=== PATIENT | female | born 1990 | race Asian ===

== ENCOUNTER 2020-10-06 21:36 | Emergency (ER) | payer OTHER, SELFPAY ==
--- NOTE | ~2020-10-06 | CT_ITS ---
EXAMINATION: HEAD CT WITHOUT CONTRAST CERVICAL SPINE CT WITHOUT CONTRAST CLINICAL INFORMATION: fell off bed head first, bravo, dizzy, nauseous. cannot move neck COMPARISON: None. TECHNIQUE: Contiguous axial imaging of the head was performed without the administration of IV contrast. Axial multidetector volumetric images were also performed through the cervical spine without intravenous contrast. Multiplanar reconstructed images in coronal and sagittal orientations were submitted. This CT examination was performed using dose optimization techniques as appropriate, variously including the following: *Automated exposure control *Adjustment of mA and/or kV according to patient size (this includes techniques or standardized protocols for targeted exams where dose is matched to indication/reason for exam; i.e. extremities or head) *Use of iterative reconstruction technique DOSE: 1203 mGy-cm FINDINGS: HEAD: There is no evidence of acute intracranial hemorrhage or territorial infarction. No abnormal mass-effect or midline shift. No extra-axial fluid collections. Brambila to white matter differentiation is well preserved. The ventricles are normal in size and configuration. There is no abnormal attenuation within the brain parenchyma. The soft tissues and osseous structures are normal. The sinuses and mastoid air cells are clear. CERVICAL SPINE: Vertebral body heights are normal. There is an acute fracture of C1 with 3 separate components. The anterior arch is fractured at its left half near the junction with the left lateral mass. The posterior arch is fractured bilaterally near the junctions with the lateral masses. There is a small avulsion fracture along the medial margin of the right lateral mass, likely corresponding to the attachment of the transverse ligament. The lateral masses are intact. No appreciable involvement of the transverse processes are foramen transversarium. There is splaying of the medial and lateral masses by 7 mm. The lateral masses are displaced laterally relative to the occipital condyles in a symmetric fashion, approximately 5 cm bilaterally. There is similar lateral displacement of the lateral masses relative to C2. No additional fractures are identified. No additional fractures are identified. Intervertebral disc heights are normal. No significant degenerative disc disease. Facet joints are normal. Central canal and neural foramina appear patent without appreciable stenoses. There is mild swelling of the longus coli muscles anteriorly. Cervical soft tissues are unremarkable. Imaged portions of the lung apices are clear. CT/CT cervical spine wo con IMPRESSION: 1. No acute intracranial pathology. 2. Acute Randy fracture of C1 with splaying of the lateral masses by approximately 7 mm. No appreciable compromise of the central canal. No additional fractures. This critical result was discussed by telephone with Sejal DELGADO on 10/07/2020 at 12:47 AM.
[2020-10-06 21:55] VITALS: BP 137/88; PULSE 95; RESP 18; TEMP 36.7; O2SAT 100; BMI 27.1
--- NOTE | 2020-10-06 23:56 | ED_ITS ---
HPI - Fall General Chief Complaint: Fall Stated Complaint: fell and injured neck badly Time Seen by Provider: 10/06/20 23:44 Source: patient Mode of arrival: ambulatory Limitations: no limitations History of Present Illness HPI Narrative: Patient is a 30-year-old female with no significant past medical history who presents after falling off her bed while play fighting with her friend. She states this happened just prior to her arrival. She states they were planning and she fell approximately 3 ft off of her bed head 1st into the hard floor. She states it is carpeted but it is a very thin that carpet. She s tates she immediately was unable to move her neck. she also endorses sensitivity to light, nausea, headache and dizziness. She denies vomiting or sensitivity to noise. denies any loss of control of her bladder or bowels and was able to walk in to the emergency department. Related Data Allergies Allergy/AdvReac Type Severity Reaction Status Date / Time No Known Allergies Allergy Verified 10/06/20 21:54 Review of Systems Review of Systems: Yes all other systems are reviewed and are negative FORMERLY [facility], [facility] Past Medical History Medical History Seizure Social History Social History Advance Directives: No Advance Directives Information Provided: No Patient : No Physical Exam Vital Signs: Vital Signs: Last Vital Signs Temp 98.0 F 10/06/20 21:55 Pulse 95 10/06/20 21:55 Resp 18 10/06/20 21:55 BP 137/88 10/06/20 21:55 Pulse Ox 100 10/06/20 21:55 Body Mass Index 27.1 Const: General: cooperative, healthy appearing, comfortable and acute distress (2/2 neck pain) mild HENMT: Head: Yes normal to inspection, Yes No palpable skull fracture present, Yes normocephalic, Yes atraumatic, No abrasion, No Minor's sign, No contusion, No raccoon eyes and Yes scalp tenderness (along parietal ridge of left and right side) Ears: hearing grossly normal bilaterally, external ears normal, TM normal on the right ( cerumen impaction, unable to visualize) and TM normal on the left General nose exam: Normal external nose present and Normal septum present Face and sinus: Yes normal facial exam Mouth: Normal oral and palatal mucosa present and lip normal Teeth and gingiva: dentition normal Eyes: General: appearance normal, both eyes and all related structures Neck: Neck: Yes normal visual inspection, No full ROM ( patient unable to move neck left right up down or ear to ear), Yes trachea midline and Yes tender (along cervical paraspinous muscles) Resp: Effort & Inspection: normal respiratory effort and able to speak in complete sentences Back/Spine/Pelvis: Cervical Spine: No collar present, cervical muscular tenderness, pain with cervical ROM, No Cervical spine tenderness, No step off deformity and cervical ROM abnormal Thoracic/Lumbar Spine: thoracic and lumbar spine normal to inspection Skin: General skin exam: no rashes or lesions noted Neuro: Cranial nerves: Yes CN's II-XII intact bilaterally Extrem: Other: Normal strength and sensation both upper and lower extremities bilaterally. General: Yes normal to inspection and Yes full ROM Course Course Course Narrative: Patient is a 30-year-old female with no significant past medi violeta history who presents after falling off her bed while play fighting with her friend. patient has headache, nausea, dizziness and light sensitivity. VSS. Physical exam remarkable for patient unable to perform any range of motion with her neck. Will get head and neck CT. Will give pain medication and muscle relaxer as well. Unable to do exam on remainder of spine, will perform once patient is medicated Reevaluation(s) Reevaluation #1: C1 fx on Ct Scan, collared pt, will give ativan for anxiety. Called [facility] for xfer. Time: 00:08 Reevaluation #2: Randy Rust called, she has a Randy fx at C1, no other fx's, good spinal alignment. Brain CT looks good. Time: 00:42 Reevaluation #3: Dr Benitez from [facility] said he will accept pt as a Cat 2 trauma, will order EMS for xfer. Time: 00:49 MDM - Fall Imaging Data CT brain and cervical spine: My impression: Randy fracture Radiologist's impression: [address] [id number] Scan ReportSigned Patient: Mike Sanon#: [id number]: 1990Acct:[id number]/Sex: 30 / FADM Date: 10/06/20Loc: HO.EDAttending Dr: Ordering Physician: Sejal Witt PA-C Date of Service: 10/07/20 Procedure(s): CT head/brain wo con Accession Number(s): [id number] cc: Sejal Witt PA-C~ EXAMINATION: HEAD CT WITHOUT CONTRAST CERVICAL SPINE CT WITHOUT CONTRAST CLINICAL INFORMATION: fell off bed head first, bravo, dizzy, nauseous. cannot move neck COMPARISON: None. TECHNIQUE: Contiguous axial imaging of the head was performed without the administration of IV contrast. Axial multidetector volumetric images were also performed through the cervical spine without intravenous contrast. Multiplanar reconstructed images in coronal and sagittal orientations were submitted. This CT examination was performed using dose optimization techniques as appropriate, variously including the following: *Automated exposure control *Adjustment of mA and/or kV according to patient size (this includes techniques or standardized protocols for targeted exams where dose is matched to indication/reason for exam; i.e. extremities or head) *Use of iterative reconstruction technique DOSE: 1203 mGy-cm FINDINGS: HEAD: There is no evidence of acute intracranial hemorrhage or territorial infarction. No abnormal mass-effect or midline shift. No extra-axial fluid collections. Brambila to white matter differentiation is well preserved. The ventricles are normal in size and configuration. There is no abnormal attenuation within the brain parenchyma. The soft tissues and osseous structures are normal. The sinuses and mastoid air cells are clear. CERVICAL SPINE: Vertebral body heights are normal. There is an acute fracture of C1 with 3 separate components. The anterior arch is fractured at its left half near the junction with the left lateral mass. The posterior arch is fractured bilaterally near the junctions with the lateral masses. There is a small avulsion fracture along the medial margin of the right lateral mass, likely corresponding to the attachment of the transverse ligament. The lateral masses are intact. No appreciable involvement of the transverse processes are foramen transversarium. There is splaying of the medial and lateral masses by 7 mm. The lateral masses are displaced laterally relative to the occipital condyles in a symmetric fashion, approximately 5 cm bilaterally. There is similar lateral displacement of the lateral masses relative to C2. No additional fractures are identified. No additional fractures are identified. Intervertebral disc heights are normal. No significant degenerative disc disease. Facet joints are normal. Central canal and neural foramina appear patent without appreciable stenoses. There is mild swelling of the longus coli muscles anteriorly. Cervical soft tissues are unremarkable. Imaged portions of the lung apices are clear. CT/CT head/brain wo con IMPRESSION: 1. No acute intracranial pathology. 2. Acute Randy fracture of C1 with splaying of the lateral masses by approximately 7 mm. No appreciable compromise of the central canal. No additional fractures. This critical result was discussed by telephone with Sejal DELGADO on 10/07/2020 at 12:47 AM. Dictated By:DEONDRE GREENFIELD MDSigned By:<Electronically signed by DEONDRE GREENFIELD MD in [place]>10/07/20 0048 DD/ 0001
[2020-10-07] MEDS: Cyclobenzaprine HCl 5 MG TABLET PO (00:06)
[2020-10-07] MEDS: Morphine Sulfate Immed Release 15 MG TABLET PO (00:06)
--- NOTE | 2020-10-07 00:25 | PC.NURSE ---
REPORT FROM JASVIR IN [facility] AT 23:30 PT HAS ROLLED TOWEL BEHIND NECK FOR SUPPORT, C-COLLAR NOT PLACED. PT MEDICATED, HEAD OF BED AT 30 DEGREE ANGLE AND PT TRANSPORTED TO CT SCAN ON STRETCHER.
--- NOTE | 2020-10-07 00:36 | PC.NURSE ---
C-COLLAR PLACED ON PT IN CT SCAN BY DR. MCKENZIE PLAN OF CARE FOR TX TO [facility] FOR TRAUMA
[2020-10-07] MEDS: LORazepam 2 MG/ML VIAL 0.5 MG IVPUSH (00:44)
[2020-10-07] MEDS: ondansetron HCL 4 MG/2 ML VIAL IVPUSH (00:56)
[2020-10-07 00:57] VITALS: BP 139/75; PULSE 87; RESP 16; O2SAT 100
[2020-10-07 01:02] LABS: COVID-19 Test Negative (Negative)
--- NOTE | 2020-10-07 01:29 | PC.NURSE ---
nurse to nurse report given to Andreea RN at [facility]
== END 2020-10-07 01:36 | disposition short-term general hospital (02) ==
PROVIDERS: Physician Assistant; Emergency Provider Internal Medicine
DX: S12.01XA Stable burst fracture of first cervical vertebra, initial encounter for closed fracture (principal); W06.XXXA Fall from bed, initial encounter; F41.9 Anxiety disorder, unspecified; Z20.822 Contact with and (suspected) exposure to COVID-19; Y93.83 Activity, rough housing and horseplay; Y92.013 Bedroom of single-family (private) house as the place of occurrence of the external cause; Y99.9 Unspecified external cause status
CPT/HCPCS: 36415; 70450; 72125; 87635; 96374; 96375; 99285; J2060; J2405